=== PATIENT | male | born 1970 | race Caucasian/White ===

== ENCOUNTER 2018-08-13 04:25 | Emergency (ER) | payer SELFPAY ==
[~2018-08-13] VITALS: Ht 193 cm; Wt 100.0 kg
[2018-08-13] MEDS ORDERED: ONDANSETRON 4MG ODT PO ONE (06:30)
[2018-08-13] MEDS ORDERED: MORPHINE SULFATE 10 MG/ML CPJ IM ONE (06:30)
[2018-08-13] MEDS ORDERED: LISINOPRIL 20MG TABLET PO ONE ×2 (06:30→08:45)
[2018-08-13] MEDS ORDERED: HYDRALAZINE 20MG/ML VIAL IV ONE (07:00)
[2018-08-13] MEDS ORDERED: AMLODIPINE 10MG TABLET PO ONE (07:30)
[2018-08-13 10:00] VITALS: BP 177/117
== END 2018-08-13 10:11 | disposition home or self-care (01) ==
LOC: ER 04:25
DX: K40.90 Unilateral inguinal hernia, without obstruction or gangrene, not specified as recurrent (principal); I10 Essential (primary) hypertension
CPT/HCPCS: 96372; 96374; 99284; J0360; J2270; Q0162; Z7610

== ENCOUNTER 2020-05-29 23:17 | Emergency (ER) | payer SELFPAY ==
[~2020-05-29] VITALS: Ht 190.5 cm; Wt 100.0 kg
[2020-05-29 23:19] VITALS: BP 170/101
[2020-05-30] MEDS ORDERED: CLINDAMYCIN 600 MG in DEXTROSE 5% WATER 50 ML IV ONE (04:00)
[2020-05-30] MEDS ORDERED: CLINDAMYCIN 600MG PREMIX 50 ML IV SCH (05:00)
[2020-05-30 05:59] LABS: EOSINOPHILS % 4.4 % (0.0-5.0); HEMATOCRIT. 40.9 % (42.0-52.0); HEMOGLOBIN. 13.5 g/dL (14.0-18.0); LYMPHOCYTES % 30.5 % (20.0-50.0); MEAN CORPUSCULAR HEMOGLOBIN 30.6 pg (28.0-32.0); MEAN CORPUSCULAR VOLUME 92.4 fL (80.0-94.0); MEAN PLATELET VOLUME 8.1 fl (7.4-10.4); MONOCYTES % 9.5 % (2.0-8.0); NEUTROPHILS % 54.6 % (40.0-76.0); PLATELET 262 x1000/uL (130-400); RED BLOOD CELL COUNT 4.42 mill/uL (4.7-6.1); RED CELL DISTRIBUTION WIDTH 13.5 % (11.6-14.6)
[2020-05-30 06:09] LABS: CHLORIDE 107 mEq/L (98-107)
== END 2020-05-30 07:37 | disposition home or self-care (01) ==
LOC: ER 23:24
DX: R22.42 Localized swelling, mass and lump, left lower limb (principal); I10 Essential (primary) hypertension
CPT/HCPCS: 36415; 80053; 83605; 85025; 87040; 93970; 96365; 99284; J3490; J7060